=== PATIENT | female | born 1985 | race Caucasian/White ===

== ENCOUNTER 2019-04-03 08:20 | Day surgery (SDC) | payer OTHER ==
[2019-04-03] MEDS ORDERED: CEFAZOLIN SODIUM 1 GM/VIAL ONE (08:31)
[2019-04-03] MEDS ORDERED: Ringers Lactate 1,000 ML IV ONE ×3 (08:31→13:12)
[2019-04-03] MEDS ORDERED: BACITRACIN 50000 UNIT VIAL ONE (08:31)
[2019-04-03] MEDS ORDERED: GENTAMICIN SULF 80 MG/2ML INJ ONE (08:31)
[2019-04-03] MEDS ORDERED: LIDOCAINE 1% W/EPI 1:100,000 MDV 20 ML VIAL ONE (08:31)
[2019-04-03] MEDS ORDERED: NS 0.9% VIAL 40 ML ONE (08:31)
[2019-04-03] MEDS ORDERED: SCOPOLAMINE HYDROBROMIDE PATCH TD ONE ×2 (08:35→09:02)
[2019-04-03] MEDS ORDERED: dexAMETHasone 10 MG/ML VIAL ONE (08:45)
[2019-04-03] MEDS ORDERED: propofoL 200 MG/20 ML VIAL IV ONE (08:45)
[2019-04-03] MEDS ORDERED: LIDOCAINE 2% MPF 5 ML VIAL ONE (08:45)
[2019-04-03] MEDS ORDERED: MIDAZOLAM HCL 2 MG/2 ML INJ ONE (08:46)
[2019-04-03] MEDS ORDERED: ONDANSETRON 4 MG/2 ML VIAL ONE ×4 (08:46→14:12)
[2019-04-03] MEDS ORDERED: FENTANYL CITR 250 MCG/5 ML ONE (08:46)
[2019-04-03] MEDS ORDERED: ROCURONIUM 50 MG/5 ML VIAL IV ONE ×2 (08:47→11:11)
[2019-04-03] MEDS ORDERED: CEFAZOLIN/SWI 1gm 1 GM/10 ML SYR ONE (09:03)
[2019-04-03] MEDS ORDERED: KETOROLAC 30 MG/ML INJ ONE (09:50)
[2019-04-03] MEDS ORDERED: GLYCOPYRROLATE 0.2 MG/ML SYR ONE ×2 (09:50→12:26)
[2019-04-03] MEDS ORDERED: NEOSTIGMINE 1 MG/ML -5 ML ONE (09:52)
[2019-04-03] MEDS ORDERED: EPHEDRINE SULF 50 MG/ML VIAL ONE (10:35)
[2019-04-03] MEDS ORDERED: Mastisol Adhesive Liq ONE (10:47)
[2019-04-03] MEDS ORDERED: MORPHINE 10 MG/ML VIAL ONE (11:50)
[2019-04-03] MEDS ORDERED: FENTANYL CITR 100 MCG/2 ML ONE (12:35)
[2019-04-03] MEDS ORDERED: MEPERIDINE HCL 25 MG/0.5 ML ONE (14:10)
[2019-04-03] MEDS: MORPHINE 4 MG/ML SYR ONE ×2 (14:34→14:48)
[2019-04-03 14:52] VITALS: TEMP 98.5
[2019-04-03] MEDS ORDERED: CODEINE 30MG/APAP 300MG TAB ONE (15:48)
[2019-04-03 16:09] VITALS: O2SAT 100
[2019-04-03 16:10] VITALS: BP 100/51
--- NOTE | 2019-04-04 00:06 | OP ---
Surgeon: Cabrera Villalpando MD Chiropractic Assistant: Juan. Preoperative Diagnosis: Breast enlargement and descent. Postoperative Diagnosis: Breast enlargement and descent. Procedure Performed: Reduction and lift. Anesthesia: General. Procedure In Detail: After satisfactory induction of general anesthesia, the chest was prepped with DuraPrep, dry sterile drapes applied in the usual manner. A 45 template was used to outline the righ t and left areolas, then transverse curvilinear incisions were made and then skin was de-epithelized with dermabrader and EpiCut. Then a transverse incision and lateral incision were made, the flap was elevated 1.2 cm thickness toward the sternum, clavicle, and anterior axillary line. Both sides were done simultaneously. The patient then had inferior incision made, the magan-cantwell was made into a c one after removal of lateral breast parenchyma and fat. Conization was performed with 2-0 PDS suture , then straps were elevated at the right breast at 12 o'clock, 1:30, and 3 o'clock position. The str aps were woven in and out of the pectoralis major muscle, back to the base of the cone, back to the p ectoralis muscle, back to base of cone, tied themselves with 2-0 PDS sutures. This was done from the 12 o'clock, 1:30 straps. The 3 o'clock strap was sewn over the sternum at the 3 o'clock position wi th 2-0 Ethibond. The left side was done in a mirror-image manner. The wounds were temporary stapled shut. Patient was sat up, checked for asymmetry, dog-ears too marked out. Patient was returned sup ine. Wounds were irrigated with antibiotic solution. A 10 STEFFEN was brought out the axilla, and then t he wounds closed with 3-0 Vicryl subcutaneous, 3-0 PDS running subcuticular tied in the vertical satnam kezia of the breast. Both sides were done simultaneously and then the patient was sat up. Site for n ew nipple-areolar complex was marked out. The patient was returned supine. Tissue cored out with a 45 template, then sewn with interrupted 4-0 PDS, followed by 4-0 PDS running subcuticular. Dressings consisted of tincture of benzoin, Steri-Strips, 5 x 5s, fluffs, and Car wrap. The patient tolerated the procedure well and returned to Recovery. GH/MODL Voice ID: [id number] Report ID: [id number]
== END 2019-04-03 16:47 | disposition home or self-care (01) ==
LOC: OR 08:20
PROVIDERS: ATTEND Specialist
PROC: 0H0V0ZZ Alteration of Bilateral Breast, Open Approach (ICD-10-PCS; 2019-04-03)
PROC: 0H0V0JZ Alteration of Bilateral Breast with Synthetic Substitute, Open Approach (ICD-10-PCS; principal; 2019-04-03 09:00)
DX: N64.81 Ptosis of breast (principal); N62 Hypertrophy of breast
CPT/HCPCS: 81025; 88305; 19316; 19318; J2704; J1580; J2250; J3010 ×2; J1100; J2175; J2710; J0690 ×2; J7120 ×3; J2405 ×3